=== PATIENT | male | born 2000 | race Two or more races ===

== ENCOUNTER 2021-07-26 16:11 | Emergency (ER) | payer SELFPAY ==
[~2021-07-26] VITALS: Ht 165.1 cm; Wt 72.6 kg
[2021-07-26 16:16] VITALS: BP 129/76
[2021-07-26] MEDS ORDERED: IBUPROFEN 800 MG TAB PO ONE (17:15)
[2021-07-26] MEDS ORDERED: CEPH-509 PO (17:30)
[2021-07-26] MEDS ORDERED: NAPR500T31 PO (17:30)
== END 2021-07-26 17:43 | disposition home or self-care (01) ==
LOC: ER 16:11
DX: S61.432A Puncture wound without foreign body of left hand, initial encounter (principal); W26.9XXA Contact with unspecified sharp object(s), initial encounter; Y93.89 Activity, other specified; Y92.89 Other specified places as the place of occurrence of the external cause; Y99.8 Other external cause status
CPT/HCPCS: 73130